=== PATIENT | female | born 1965 | race Caucasian/White ===

== ENCOUNTER → 2018-08-13 | Outpatient (CLI) | payer OTHER ==
[2018-08-13 11:05] LABS: BASOPHILS ABSOLUTE AUTO 0.05 K/mm3 (0.00-0.23); BASOPHILS PERCENT AUTO 1 % (0-2); EOSINOPHILS PERCENT AUTO 0 % (0-6); Hematocrit 41.8 % (33.0-51.0); IMMATURE GRAN ABSOLUTE AUTO 0.02 K/mm3 (0.00-0.10); IMMATURE GRAN PERCENT AUTO 0 % (0-1); LYMPHOCYTES ABSOLUTE AUTO 0.77 K/mm3 (0.84-5.20); LYMPHOCYTES PERCENT AUTO 9 % (21-46); MONOCYTES ABSOLUTE AUTO 0.72 K/mm3 (0.16-1.47); MONOCYTES PERCENT AUTO 8 % (4-13); Mean Corpuscular HGB 33.1 pg (26.0-34.0); Mean Corpuscular HGB Conc 33.5 g/dL (31.5-36.5); Mean Corpuscular Volume 99 fL (80-100); NEUTROPHILS PERCENT AUTO 82 % (41-73); Platelet Count 221 K/mm3 (150-400); RDW Coefficient Variation 12.4 % (11.7-14.2); RDW Standard Deviation 45.2 fL (35.1-46.3); Red Blood Cell Count 4.23 M/mm3 (3.80-5.20); White Blood Cell Count 8.56 K/mm3 (4.00-11.30)
== END | disposition home or self-care (01) ==
LOC: LAB 10:07 → LAB SHORT 10:07
PROVIDERS: Family Medicine
DX: N15.9 Renal tubulo-interstitial disease, unspecified (principal); R50.9 Fever, unspecified; R00.0 Tachycardia, unspecified
CPT/HCPCS: 36415; 85025; 87040; 87077; 87086; 87186

== ENCOUNTER → 2019-04-15 | Outpatient (CLI) | payer OTHER ==
[2019-04-15 12:31] LABS: Source, Urine Clean Catch
[2019-04-15 13:09] LABS: Bilirubin, Urine Neg (Neg); Blood, Urine Neg (Neg); Glucose Qualitative, Urine Neg (Neg); Ketones, Urine Neg (Neg); Leukocyte Esterase, Urine Neg (Neg); Nitrite, Urine Neg (Neg); Protein, Urine Neg (Neg); Specific Gravity, Urine 1.015 (1.003-1.022); Urobilinogen, Urine NORM (Normal)
[2019-04-15 13:57] LABS: Appearance, Urine Clear (Clear); Color, Urine Yellow (P-Yellow)
== END | disposition home or self-care (01) ==
LOC: LAB SHORT 12:00 → LAB 12:00
PROVIDERS: Family Medicine
DX: R30.0 Dysuria (principal); R35.0 Frequency of micturition
CPT/HCPCS: 81003

== ENCOUNTER 2020-01-08 09:51 | Emergency (ER) | payer OTHER ==
[~2020-01-08] VITALS: Ht 170.2 cm; Wt 49.4 kg
[2020-01-08 10:35] LABS: Source, Urine Clean Catch
[2020-01-08 10:42] LABS: BASOPHILS ABSOLUTE AUTO 0.11 K/mm3 (0.00-0.23); BASOPHILS PERCENT AUTO 1 % (0-2); EOSINOPHILS ABSOLUTE AUTO 0.11 K/mm3 (0.00-0.68); EOSINOPHILS PERCENT AUTO 1 % (0-6); Hematocrit 40.2 % (33.0-51.0); Hemoglobin 13.3 g/dL (11.5-16.0); IMMATURE GRAN ABSOLUTE AUTO 0.07 K/mm3 (0.00-0.10); IMMATURE GRAN PERCENT AUTO 1 % (0-1); LYMPHOCYTES ABSOLUTE AUTO 2.14 K/mm3 (0.84-5.20); LYMPHOCYTES PERCENT AUTO 17 % (21-46); MONOCYTES ABSOLUTE AUTO 0.59 K/mm3 (0.16-1.47); MONOCYTES PERCENT AUTO 5 % (4-13); Mean Corpuscular HGB 33.4 pg (26.0-34.0); Mean Corpuscular HGB Conc 33.1 g/dL (31.5-36.5); Mean Corpuscular Volume 101 fL (80-100); NEUTROPHILS ABSOLUTE AUTO 9.79 K/mm3 (1.96-9.15); NEUTROPHILS PERCENT AUTO 76 % (41-73); Platelet Count 316 K/mm3 (150-400); RDW Standard Deviation 48.3 fL (35.1-46.3); Red Blood Cell Count 3.98 M/mm3 (3.80-5.20); White Blood Cell Count 12.81 K/mm3 (4.00-11.30)
[2020-01-08 10:46] LABS: Bilirubin, Urine Neg (Neg); Blood, Urine 1+ (Neg); Glucose Qualitative, Urine Neg (Neg); Ketones, Urine 2+ (Neg); Leukocyte Esterase, Urine 2+ (Neg); Nitrite, Urine Neg (Neg); Protein, Urine 1+ (Neg); Specific Gravity, Urine 1.025 (1.003-1.022); Urobilinogen, Urine NORM (Normal)
[2020-01-08 10:56] LABS: Appearance, Urine Hazy (Clear); Color, Urine Yellow (P-Yellow)
[2020-01-08 10:57] LABS: Red Blood Cells, Urine 0-2 /hpf (0-2); White Blood Cells, Urine 25-50 /hpf (0-5)
[2020-01-08 10:58] LABS: Bacteria Many /hpf; Squamous Epithelial Cells Few /hpf (Few)
[2020-01-08 11:01] LABS: Alanine Aminotransfer (ALT/SGP 28 U/L (12-78); Albumin, Blood 4.1 g/dL (3.4-5.0); Albumin/Globulin Ratio 1.1 (0.8-1.8); Alk Phos 87 U/L (50-136); Anion Gap 10 mmol/L (6-16); Aspartate Aminotrans (AST/SGOT 48 U/L (12-37); Bilirubin, Total 0.5 mg/dL (0.1-1.0); Blood Urea Nitrogen 22 mg/dL (8-24); Bun/Creatinine Ratio 31.5 (12.0-20.0); CO2, Blood 25 mmol/L (21-32); Calcium, Blood 9.4 mg/dL (8.5-10.1); Chloride, Blood 107 mmol/L (98-108); Globulin, Blood 3.9 g/dL (2.2-4.0); Glomerular Filtration Rate >60 (60-); Glucose, Blood 88 mg/dL (70-99); Potassium, Blood 4.4 mmol/L (3.5-5.5); Sodium, Blood 142 mmol/L (136-145)
[2020-01-08] MEDS ORDERED: TRAM50 PO (13:29)
[2020-01-08] MEDS ORDERED: MIRT30 PO (13:30)
[2020-01-08] MEDS ORDERED: XANAX1 M1 PO (13:30)
[2020-01-08] MEDS ORDERED: QUETIAPINE FUM400 M2 PO (13:30)
[2020-01-08] MEDS ORDERED: Venlafaxine HC225 MG PO (13:31)
[2020-01-08] MEDS ORDERED: CODACE30 PO (14:43)
[2020-01-08] MEDS ORDERED: ONDA4ODT MM (14:43)
[2020-01-08] MEDS ORDERED: CEFP200 PO (14:43)
== END 2020-01-08 16:49 | disposition home or self-care (01) ==
LOC: ER 09:51
PROVIDERS: Emergency Medicine
DX: N10 Acute pyelonephritis (principal); Z79.899 Other long term (current) drug therapy
CPT/HCPCS: 36415; 80053; 81001; 85025; 87077; 87086; 87186; 93005; 93010; 96365; 96375; 99285-25; J0696; J1885

== ENCOUNTER → 2020-12-19 | Outpatient (CLI) | payer OTHER ==
[~2020-12-19] MED LIST: CEFP200 PO; CODACE30 PO; MIRT30 PO; ONDA4ODT MM; QUETIAPINE FUM400 M2 PO; TRAM50 PO; Venlafaxine HC225 MG PO; XANAX1 M1 PO
== END ==
LOC: LAB SHORT 10:00 → LAB 10:00
DX: R30.0 Dysuria (principal)
CPT/HCPCS: 87086

== ENCOUNTER 2021-07-12 07:22 | Inpatient (IN) | payer OTHER ==
[~2021-07-12] VITALS: Ht 170.2 cm; Wt 50.8 kg
[2021-07-12 08:34] LABS: BASOPHILS ABSOLUTE AUTO 0.03 K/mm3 (0.00-0.23); BASOPHILS PERCENT AUTO 0 % (0-2); EOSINOPHILS ABSOLUTE AUTO 0.02 K/mm3 (0.00-0.68); EOSINOPHILS PERCENT AUTO 0 % (0-6); Hematocrit 35.3 % (33.0-51.0); Hemoglobin 12.4 g/dL (11.5-16.0); IMMATURE GRAN ABSOLUTE AUTO 0.01 K/mm3 (0.00-0.10); IMMATURE GRAN PERCENT AUTO 0 % (0-1); LYMPHOCYTES ABSOLUTE AUTO 1.58 K/mm3 (0.84-5.20); LYMPHOCYTES PERCENT AUTO 23 % (21-46); MONOCYTES ABSOLUTE AUTO 0.91 K/mm3 (0.16-1.47); MONOCYTES PERCENT AUTO 13 % (4-13); Mean Corpuscular HGB 37.8 pg (26.0-34.0); Mean Corpuscular HGB Conc 35.1 g/dL (31.5-36.5); Mean Corpuscular Volume 108 fL (80-100); Mean Platelet Volume 10.2 fL (9.1-12.4); NEUTROPHILS ABSOLUTE AUTO 4.37 K/mm3 (1.96-9.15); NEUTROPHILS PERCENT AUTO 63 % (41-73); Platelet Count 313 K/mm3 (150-400); RDW Coefficient Variation 14.5 % (11.7-14.2); RDW Standard Deviation 58.4 fL (35.1-46.3); Red Blood Cell Count 3.28 M/mm3 (3.80-5.20); White Blood Cell Count 6.92 K/mm3 (4.00-11.30)
[2021-07-12 08:44] LABS: Alanine Aminotransfer (ALT/SGP 23 U/L (12-78); Albumin, Blood 3.5 g/dL (3.4-5.0); Albumin/Globulin Ratio 1.1 (0.8-1.8); Alk Phos 99 U/L (50-136); Anion Gap 7 mmol/L (6-16); Aspartate Aminotrans (AST/SGOT 33 U/L (12-37); Bilirubin, Total 0.4 mg/dL (0.1-1.0); Blood Urea Nitrogen 9 mg/dL (8-24); Bun/Creatinine Ratio 14.6 (12.0-20.0); CO2, Blood 34 mmol/L (21-32); Calcium, Blood 9.1 mg/dL (8.5-10.1); Chloride, Blood 97 mmol/L (98-108); Creatinine, Blood 0.62 mg/dL (0.40-1.00); Globulin, Blood 3.2 g/dL (2.2-4.0); Glomerular Filtration Rate >60 (60-); Glucose, Blood 113 mg/dL (70-99); Sodium, Blood 138 mmol/L (136-145); Total Protein, Blood 6.7 g/dL (6.4-8.2)
[2021-07-12 12:38] LABS: Influenza A, PCR NEGATIVE (NEGATIVE); Influenza B, PCR NEGATIVE (NEGATIVE); Resp Syncytial Virus, PCR NEGATIVE (NEGATIVE); SARS-Cov-2 (COVID-19) PCR, MMC NEGATIVE (NEGATIVE)
--- NOTE | 2021-07-12 17:47 | NUR ---
SHIFT SUMMARY PT ADMITTED FROM ED FOR ABD PAIN AND CONSTIPATION. PT REPORTS NOT HAVING A BM IN AT LEAST TWO WEEKS. PT TEARFUL AND CRYING IN PAIN. MEDICATED PER EMR WITH NO EFFECT. PT TO RECEIVE FLEET ENEMAS. SURGICAL CONSULT DONE. WILL REPORT TO WALLY MURILLO.
--- NOTE | 2021-07-12 21:24 | NUR ---
ATTEMPTED TO GIVE PT PO LACTULOSE AND MIRALAX AT 2100. PT IMMEDIATELY GOT NAUSEOUS AND WAS UNABLE TO KEEP MEDICATION DOWN.
[2021-07-13 04:39] LABS: BASOPHILS ABSOLUTE AUTO 0.04 K/mm3 (0.00-0.23); BASOPHILS PERCENT AUTO 1 % (0-2); EOSINOPHILS ABSOLUTE AUTO 0.05 K/mm3 (0.00-0.68); EOSINOPHILS PERCENT AUTO 1 % (0-6); Hematocrit 31.9 % (33.0-51.0); Hemoglobin 10.9 g/dL (11.5-16.0); IMMATURE GRAN ABSOLUTE AUTO 0.01 K/mm3 (0.00-0.10); IMMATURE GRAN PERCENT AUTO 0 % (0-1); LYMPHOCYTES ABSOLUTE AUTO 1.48 K/mm3 (0.84-5.20); LYMPHOCYTES PERCENT AUTO 36 % (21-46); MONOCYTES PERCENT AUTO 17 % (4-13); Mean Corpuscular HGB 37.7 pg (26.0-34.0); Mean Corpuscular HGB Conc 34.2 g/dL (31.5-36.5); Mean Corpuscular Volume 110 fL (80-100); Mean Platelet Volume 9.6 fL (9.1-12.4); NEUTROPHILS ABSOLUTE AUTO 1.84 K/mm3 (1.96-9.15); NEUTROPHILS PERCENT AUTO 45 % (41-73); Platelet Count 268 K/mm3 (150-400); RDW Coefficient Variation 14.1 % (11.7-14.2); RDW Standard Deviation 58.1 fL (35.1-46.3); Red Blood Cell Count 2.89 M/mm3 (3.80-5.20); White Blood Cell Count 4.12 K/mm3 (4.00-11.30)
[2021-07-13 05:01] LABS: Alanine Aminotransfer (ALT/SGP 18 U/L (12-78); Albumin, Blood 2.9 g/dL (3.4-5.0); Albumin/Globulin Ratio 1.1 (0.8-1.8); Alk Phos 77 U/L (50-136); Anion Gap 7 mmol/L (6-16); Aspartate Aminotrans (AST/SGOT 22 U/L (12-37); Bilirubin, Total 0.4 mg/dL (0.1-1.0); Blood Urea Nitrogen 6 mg/dL (8-24); CO2, Blood 25 mmol/L (21-32); Calcium, Blood 8.5 mg/dL (8.5-10.1); Chloride, Blood 109 mmol/L (98-108); Creatinine, Blood 0.55 mg/dL (0.40-1.00); Globulin, Blood 2.7 g/dL (2.2-4.0); Glomerular Filtration Rate >60 (60-); Glucose, Blood 86 mg/dL (70-99); Potassium, Blood 3.7 mmol/L (3.5-5.5); Sodium, Blood 141 mmol/L (136-145); Total Protein, Blood 5.6 g/dL (6.4-8.2)
--- NOTE | 2021-07-13 12:15 | NUR ---
GAVE SOAP SUDS ENEMA, PER DR MICHAUD ORDER. 1000ML GIVEN. GAVE IN INCREMENTS. PATIENT UNABLE TO HOLD IN FOR MORE THAN 1-2 MINUTES AT A TIME. SOME BROWN LIQUID CAME OUT IN RETURN, BUT MOSTLY CLEAR RETURN.
--- NOTE | 2021-07-13 17:56 | NUR ---
SHIFT SUMMARY VSS ON RA. PATIENT CONTINUES TO HAVE ABDOMINAL PAIN/CRAMPING, 5-7/10. MEDICATED PER EMAR. GAVE 1L SOAP SUDS ENEMA, SEE NOTE. PATIENT DIDNT TOLRATE VERY WELL AND COULDNT HOLD IT FOR LONGER THAN 1-2 MINUTES. UP TO BATHROOM FREQUENTLY THROUGHOUT THE DAY. REPORTS HAVING LIQUID BROWN STOOL & PASSING GAS. ASKED PATIENT TO NOT FLUSH SO STAFF CAN SEE STOOL. FLUIDS RUNNING PER EMAR, PATIENT REMAINS NPO W/ SIPS & CHIPS. WILL CONTINUE TO MONITOR & REPORT TO ONCOMING RN.
--- NOTE | 2021-07-14 06:40 | NUR ---
PT IS A&OX4, INDEPENDENT WITH CARES AND IS ABLE TO MAKE NEEDS KNOWN. PAIN CONTROL CONTINUES TO BE AN ISSUE THIS NIGHT. PT UNABLE TO SLEEP. GAVE ATIVAN AND FENTANYL PRNS AND PT CONTINUED TO BE ANXIOUS AND HAVE 8-9/10 PAIN LEVELS. PT HAS BM DURING THE NIGHT, LIQUID CONSISTANCY AND BROWN COLOR. FLUIDS RUNNING AT 150ML/HR. WILL CONTINUE TO MONITOR AND GIVE REPORT TO ONCOMING RN.
--- NOTE | 2021-07-14 15:12 | NUR ---
PATIENT HAS BEEN VERY TEARFUL THROUGHOUT SHIFT. REPORTING TO ME THAT "NO PAIN MEDICATION HELPS", ABDOMINAL PAIN REMAINS FROM 6-9/10, PER PATIENT. SHE HAS BEEN RESTING IN BED MOST OF THE DAY, OFTEN CURLED UP LAYING ON HER SIDE. THIS RN ENCOURAGED AMBULATION IN THE HALLWAYS MULTIPLE TIMES AND PATIENT STATES SHE IS AGREEABLE ALTHOUGH CONTINUES TO PUT IT OFF. ENCOURAGING TO CONTINUE TAKING THE LACTULOSE, VERY RESISTANT BUT EVENTUALLY AGREED. PATIENT CAN BE VERY IMPULSIVE AND APPEARS IT IS RELATED TO ANXIETY & PAIN. CONTINUING TO EDUCATE ON PAOIN MANAGEMENT, AMBULATION/MOBILITY, & ELIMINATION.
--- NOTE | 2021-07-14 17:27 | NUR ---
SHIFT SUMMARY PATIENT VERY TEARFUL AND APPEARED IRRITABLE T/O SHIFT. UP TO BATHROOM MULTIPLE TIMES INDEPENDENTLY, FREQUENT SMALL LIQUID BROWN BM'S. ADVANCED TO CLEAR LIQUIDS THIS AM, TOLERATING WELL BUT HAS VERY MINIMAL INTEREST. ABDOMINAL PAIN REMAINS 6-9/10 PER PATIENT, REPORTS IT TO BE "UNBEARABLE". STATES ",MY STOMACH IS FULL TO THE TOP, I CANT TAKE IN ANY MORE". TAKES A LOT OF ENCOURAGMENT FOR PATIENT TO BE AGREEABLE TO PO LACTULOSE. ENCOURGAED & EDUCATED ABOUT AMBULATION T/O SHIFT BUT PATIENT CONTINUES TO DECLINE AND STATES SHE HURTS TOO BAD. CONTINUING TO REINFORCE. WILL REPORT TO ONCOMING RN.
--- NOTE | 2021-07-15 00:47 | NUR ---
PT AMBULATES THE HALLS THIS EVENING PRIOR TO NIGHT MEDS. AT APPROX MIDNIGHT PT HAS A LOOSE STOOL WITH ONE SOLID NUGGET. PT STATES THAT THEY STILL FEEL PAIN AND STATES THAT ABD IS TENDER. REPORTS 9/10 PAIN.
[2021-07-15 04:49] LABS: Hematocrit 30.2 % (33.0-51.0); Hemoglobin 10.7 g/dL (11.5-16.0); Mean Corpuscular HGB 37.9 pg (26.0-34.0); Mean Corpuscular HGB Conc 35.4 g/dL (31.5-36.5); Mean Corpuscular Volume 107 fL (80-100); Mean Platelet Volume 9.9 fL (9.1-12.4); Platelet Count 295 K/mm3 (150-400); RDW Coefficient Variation 13.5 % (11.7-14.2); RDW Standard Deviation 54.3 fL (35.1-46.3); Red Blood Cell Count 2.82 M/mm3 (3.80-5.20); White Blood Cell Count 6.86 K/mm3 (4.00-11.30)
--- NOTE | 2021-07-15 05:32 | NUR ---
PT IS A&OX4, INDEPENDENT IN ROOM AND IS ABLE TO MAKE NEEDS KNOWN. PT SLEEPS INTERMITTENTLY THIS SHIFT. C/O 7 TO 9/10 PAIN, MEDICATED WITH PRN DAMARIS AND FENTANYL, ALSO TORADOL WITH MINIMAL RELIEF. ENCOURAGED PT TO AMBULATE THE HALLWAY. PT HAS SEVERAL SMALL LIQUID BOWEL MOVEMENTS WITH ONE FIRM FORMED STOOL THAT WAS THE SIZE OF A GRAPE. PT VERY TEARFUL, BUT PLEASANT WITH CARES. REQUIRES ENCOURAGEMENT TO TAKE BOWEL MEDICATION. WILL CONTINUE TO MONITOR AND GIVE REPORT TO ONCOMING NURSE.
[2021-07-15 05:37] LABS: Anion Gap 11 mmol/L (6-16); Blood Urea Nitrogen 4 mg/dL (8-24); CO2, Blood 21 mmol/L (21-32); Calcium, Blood 8.3 mg/dL (8.5-10.1); Chloride, Blood 108 mmol/L (98-108); Creatinine, Blood 0.58 mg/dL (0.40-1.00); Glomerular Filtration Rate >60 (60-); Glucose, Blood 98 mg/dL (70-99); Sodium, Blood 140 mmol/L (136-145)
[2021-07-15 05:39] LABS: Potassium, Blood 2.4 mmol/L (3.5-5.5)
--- NOTE | 2021-07-15 06:00 | NUR ---
LAB CALLED WITH A CLV OF POTASSIUM 2.4. MD ORDERED IV POTASSIUM REPLACEMENT OF 60 MEQX1.
--- NOTE | 2021-07-15 15:12 | NUR ---
DISCHARGE SUMMARY PT A&OX4, VSS/RA, MULTIPLE BOWEL MOVEMENTS TODAY/VOIDING WELL, AMBULATING TO BRP/INDEPENDENT IN ROOM, SHOWERED TODAY, COLLINS PO CLD/FLD. LEFT FLOOR VIA WC TO GO HOME WITH , WITH ALL PERSONAL POSSESSIONS INCLUDING DC PACKET. DC INSTRUCTIONS PROVIDED; PT AND REP UNDERSTANDING THOSE INSTRUCTIONS INCLUDING MIRALAX 3X DAILY AND FU WITH PCP. IV DC'D.
--- NOTE | 2021-07-15 16:05 | NUR ---
CALLED AND LET PT AND HUSB KNOW THE PHONE POSTAL MAIL [employer]ER AT [facility]K, THEY WILL HAVE MELINDA PICK IT UP,
== END 2021-07-15 15:15 | disposition home or self-care (01) | DRG 392 ==
LOC: ER 07:22 → SURS 11:34
PROVIDERS: Internal Medicine; Physician Assistant; ADMIT Internal Medicine
DX: K52.89 Other specified noninfective gastroenteritis and colitis (principal); F11.20 Opioid dependence, uncomplicated; K56.41 Fecal impaction; Z20.822 Contact with and (suspected) exposure to COVID-19; T40.605A Adverse effect of unspecified narcotics, initial encounter; E87.6 Hypokalemia; E86.0 Dehydration; G89.29 Other chronic pain; F41.9 Anxiety disorder, unspecified; M79.7 Fibromyalgia; M06.9 Rheumatoid arthritis, unspecified; F32.A Depression, unspecified; Z79.899 Other long term (current) drug therapy; Z90.49 Acquired absence of other specified parts of digestive tract
CPT/HCPCS: 0241U; 36415; 74177; 80048; 80053; 83690; 85025; 85027; 96361; 96374; 96375; 99285-25; A9270; J1170; J1885; J2060; J2405; J3010; J3480; J7030; J7040; Q9967

== ENCOUNTER → 2021-10-28 | Outpatient (CLI) | payer OTHER ==
[2021-10-28 16:52] LABS: Free Thyroxine 0.45 ng/dL (0.70-1.60)
[2021-10-28 16:56] LABS: Albumin, Blood 3.8 g/dL (3.4-5.0); Albumin/Globulin Ratio 1.1 (0.8-1.8); Bilirubin, Total 0.3 mg/dL (0.1-1.0); Bun/Creatinine Ratio 16.2 (12.0-20.0); Calcium, Blood 9.6 mg/dL (8.5-10.1); Creatinine, Blood 0.74 mg/dL (0.40-1.00); Globulin, Blood 3.5 g/dL (2.2-4.0); Potassium, Blood 4.8 mmol/L (3.5-5.5); Thyroid Stimulating Hormone 1.29 uIU/mL (0.360-4.800); Total Protein, Blood 7.3 g/dL (6.4-8.2)
== END | disposition home or self-care (01) ==
LOC: LAB 13:15 → LAB SHORT 13:15
PROVIDERS: Nurse Practitioner Family
DX: E03.9 Hypothyroidism, unspecified (principal)
CPT/HCPCS: 36415; 80053; 84439; 84443

== ENCOUNTER → 2021-12-20 | Outpatient (CLI) | payer OTHER ==
[2021-12-20 12:02] LABS: Hematocrit 33.6 % (33.0-51.0); Hemoglobin 11.2 g/dL (11.5-16.0); Mean Corpuscular HGB Conc 33.3 g/dL (31.5-36.5); Mean Corpuscular Volume 93 fL (80-100); Mean Platelet Volume 9.9 fL (9.1-12.4); Platelet Count 327 K/mm3 (150-400); RDW Coefficient Variation 13.2 % (11.7-14.2); RDW Standard Deviation 45.5 fL (35.1-46.3); Red Blood Cell Count 3.61 M/mm3 (3.80-5.20); White Blood Cell Count 10.56 K/mm3 (4.00-11.30)
[2021-12-20 12:20] LABS: Albumin/Globulin Ratio 0.8 (0.8-1.8); Bilirubin, Total 0.3 mg/dL (0.1-1.0); Bun/Creatinine Ratio 13.5 (12.0-20.0); Calcium, Blood 8.7 mg/dL (8.5-10.1); Creatinine, Blood 0.89 mg/dL (0.40-1.00); Globulin, Blood 3.9 g/dL (2.2-4.0); Potassium, Blood 3.6 mmol/L (3.5-5.5); Total Protein, Blood 6.9 g/dL (6.4-8.2)
[2021-12-20 12:42] LABS: BAND PERCENT MAN 10 % (0-8); BASOPHILS PERCENT MAN 0 % (0-2); EOSINOPHILS PERCENT MAN 0 % (0-6); LYMPHOCYTES ABSOLUTE MAN 1.05 K/mm3 (0.84-5.20); LYMPHOCYTES PERCENT MAN 10 % (21-46); MONOCYTES ABSOLUTE MAN 1.47 K/mm3 (0.16-1.47); MONOCYTES PERCENT MAN 14 % (4-13); NEUTROPHILS ABSOLUTE MAN 8.02 K/mm3 (1.96-9.15); SEG NEUTROPHILS PERCENT MAN 66 % (41-73); TOTAL CELLS COUNTED 100
== END | disposition home or self-care (01) ==
LOC: LAB 11:20 → LAB SHORT 11:20
PROVIDERS: Nurse Practitioner Family
DX: N30.01 Acute cystitis with hematuria (principal); R11.2 Nausea with vomiting, unspecified; R19.7 Diarrhea, unspecified
CPT/HCPCS: 80053; 85025; 87077; 87086; 87186

== ENCOUNTER → 2022-08-05 | Outpatient (CLI) | payer OTHER | END | disposition home or self-care (01) | LOC: LAB SHORT 16:52 → LAB 16:52 | DX: N39.0 Urinary tract infection, site not specified (principal) | CPT/HCPCS: 87077; 87086; 87186 ==

== ENCOUNTER → 2022-08-14 | Outpatient (CLI) | payer OTHER | END | disposition home or self-care (01) | LOC: LAB 13:20 → LAB SHORT 13:20 | DX: R30.0 Dysuria (principal) | CPT/HCPCS: 87086 ==

== ENCOUNTER → 2022-10-08 | Outpatient (CLI) | payer OTHER | LOC: LAB 14:42 → LAB SHORT 14:42 | DX: R30.0 Dysuria (principal) | CPT/HCPCS: 87077; 87086; 87186 ==

== ENCOUNTER → 2023-03-11 | Outpatient (CLI) | payer OTHER ==
[2023-03-11 16:02] LABS: Candida species (DNA Probe) Negative (NEGATIVE); G. vaginalis (DNA Probe) Positive (NEGATIVE); T. vaginalis (DNA Probe) Negative (NEGATIVE)
== END | disposition home or self-care (01) ==
LOC: LAB 13:29 → LAB SHORT 13:29
PROVIDERS: Nurse Practitioner Family
DX: N94.10 Unspecified dyspareunia (principal); R35.0 Frequency of micturition
CPT/HCPCS: 87086; 87480; 87510; 87660

== ENCOUNTER → 2024-01-05 | Outpatient (CLI) | payer OTHER ==
[~2024-01-05] MED LIST changes: +ALBU90OI; +Budeprion Xl300 MG; +CLIMARA1 EACH; +CLON.5; +DICLOFENAC SOD100 GM; +FLUTICASONE-SA1 EAC1; +LORA10ER; +MIRALAX17 GM; +MIRT30; +OLAN5A; +ONDA4ODT; +Ropinirole HCl1 MG; +TRAM50; +TRAZ100
== END | disposition home or self-care (01) ==
LOC: LAB 13:59 → LAB SHORT 13:59
DX: N30.01 Acute cystitis with hematuria (principal); R30.0 Dysuria
CPT/HCPCS: 87086

== ENCOUNTER → 2024-03-18 | Outpatient (CLI) | payer OTHER ==
[2024-03-19 09:41] LABS: Bacterial Vaginosis PCR Negative (NEGATIVE); Candida Group, PCR NOT DETECTED (NOT DETECT); Candida glabrata-krusei, PCR NOT DETECTED (NOT DETECT)
== END ==
LOC: LAB 16:17 → LAB SHORT 16:17
PROVIDERS: Nurse Practitioner Family
DX: R39.15 Urgency of urination (principal)
CPT/HCPCS: 81515; 87086